=== PATIENT | female | born 1955 | race Caucasian/White ===

== ENCOUNTER → 2017-09-30 | Outpatient (CLI) | payer OTHER | LOC: RAD 11:19 | DX: Z12.31 Encounter for screening mammogram for malignant neoplasm of breast (principal) ==

== ENCOUNTER → 2018-11-03 | Outpatient (CLI) | payer OTHER | LOC: RAD 01:54 | DX: Z12.31 Encounter for screening mammogram for malignant neoplasm of breast (principal) ==

== ENCOUNTER → 2020-10-24 | Outpatient (CLI) | payer OTHER | LOC: BC 09:50 | PROVIDERS: ATTEND Obstetrics & Gynecology | DX: Z12.31 Encounter for screening mammogram for malignant neoplasm of breast (principal) ==

== ENCOUNTER → 2020-11-06 | Outpatient (CLI) | payer OTHER | LOC: NUC 13:30 | PROVIDERS: ATTEND Obstetrics & Gynecology | DX: N95.9 Unspecified menopausal and perimenopausal disorder (principal) ==